=== PATIENT | male | born 2000 | race Caucasian/White ===

== ENCOUNTER 2024-03-31 20:45 | Emergency (ER) | payer MEDICAID ==
[~2024-03-31] VITALS: Ht 182.9 cm; Wt 83.0 kg
[2024-03-31 20:51] VITALS: BP 123/81; PULSE 88; RESP 18; TEMP 98; O2SAT 99
[2024-03-31] MEDS ORDERED: IBUP-2213 PO (22:57)
[2024-03-31] MEDS ORDERED: ACET500T99 PO (22:57)
[2024-03-31] MEDS: KETOROLAC 30 MG/ML VIAL IM ONE (23:05)
== END 2024-03-31 23:10 | disposition home or self-care (01) ==
LOC: MED 20:45
DX: S83.92XA Sprain of unspecified site of left knee, initial encounter (principal); Z79.899 Other long term (current) drug therapy; W10.8XXA Fall (on) (from) other stairs and steps, initial encounter; Y92.89 Other specified places as the place of occurrence of the external cause; Y93.89 Activity, other specified; Y99.8 Other external cause status
CPT/HCPCS: 73562; 96372; 99283; J1885